=== PATIENT | male | born 1945 ===

== ENCOUNTER 2023-04-21 00:43 | Day surgery (SDC) | payer MEDICARE, OTHER, SELFPAY ==
[2023-04-20 14:41] VITALS: BMI 27.5
[2023-04-21] VITALS (10 sets, daily range): BP systolic 122–150; BP diastolic 77–89; PULSE 55–71; RESP 12–16; TEMP 36.2; O2SAT 95–98; BMI 27.0
[2023-04-21 07:47] LABS: Basophils Percent Auto 0.3 % (0.2-1.2); Eosinophils Absolute Auto 0.2 K/mm3 (0-0.3); Eosinophils Percent Auto 2.8 % (0-4.4); Hematocrit 46.5 % (42.0-52.0); Hemoglobin 15.6 g/dL (14.0-18.0); Immature Granulocyte Absolute 0.02 K/mm3 (0.00-0.031); Immature Granulocyte Percent A 0.3 % (0-0.5); Lymphocytes Absolute Auto 1.44 K/mm3 (0.9-3.2); Lymphocytes Percent Auto 23.6 % (18.3-44.2); Mean Corpuscular HGB Conc 33.5 g/dl (32-36); Mean Corpuscular Hemoglobin 32.5 pg (26-34); Mean Corpuscular Volume 96.9 fl (80-100); Monocytes Absolute Auto 0.6 K/mm3 (0.1-0.6); Monocytes Percent Auto 10.3 % (2.6-8.5); Neutrophils Absolute Auto 3.8 K/mm3 (1.3-6.7); Neutrophils Percent Auto 62.7 % (45.5-73.1); Platelet Count Result 151 k/mm3 (150-375); Red Cell Distribution Width 13.1 % (11.5-14.5); White Blood Count 6.1 K/mm3 (4.5-10.0)
[2023-04-21 07:57] LABS: INR 1.1; Prothrombin Time 14.8 Seconds (11.1-14.7)
[2023-04-21 08:02] LABS: Anion Gap 3 mmol/L (8-16); Blood Urea Nitrogen 19 mg/dL (9-20); Calcium 9.1 mg/dL (8.4-10.2); Carbon Dioxide 32 mmol/L (22-30); Chloride 106 mmol/L (98-107); Estimated CRCL calculation 67 ml/min; Estimated Glomerular Filt Rate > 60; Glucose 100 mg/dL (65-110); Potassium 3.7 mmol/L (3.4-5.0); Sodium 141 mmol/L (137-145)
--- NOTE | 2023-04-21 08:30 | ECG_ITS ---
Measurements Intervals [place] Rate: 51 P: 3 MA: 144 QRS: -77 QRSD: 184 T: -34 QT: 483 QTc: 445 Interpretive Statements SINUS RHYTHM RIGHT BUNDLE BRANCH BLOCK [120+ ms QRS DURATION, UPRIGHT V1, 40+ ms S IN I/aVL/V4/V5/V6] LEFT ANTERIOR FASCICULAR BLOCK [QRS AXIS <= -45, QR IN I, RS IN II] MODERATE T-WAVE ABNORMALITY NO PREVIOUS ECG AVAILABLE FOR COMPARISON Electronically Signed On 04-21-2023 15:48:28 RESEARCH CHIEF ENGINEER by Kathie Fu M.D.
--- NOTE | 2023-04-21 08:54 | PM.IMHP ---
H&P: HPI History of Present Illness Date/Time: 04/21/23 08:54 Chief Complaint: Pacemaker pulse generator at elective replacement interval Narrative: Riccardo Oropeza is 77-year-old male with history of Medtronic pacemaker implanted for intermittent complete heart block in 2012. He also has paroxysmal atrial fibrillation and has been anticoagulation. recently he was found have a decline in left ventricular function, EF 37-40% with inferior wall hypokinesis, and a stress test showed a large inferior fixed defect. He does not RV pace much. No known coronary disease or anginal symptoms. Medical therapy has been increased any scheduled for coronary CTA to evaluate for CAD. He is feeling well today with no fevers or signs of infection. He has held his Xarelto. He took his usual 2 mi walk this morning with no problems. Review of Systems Constitutional: Constitutional: Denies fever(s) Eyes: Eyes: Reports no additional eye complaints ENT: Denies epistaxis Cardiovascular: Cardiovascular: Denies chest pain, Denies pedal edema, Denies lightheadedness and Denies dyspnea Respiratory: Respiratory: Denies chest congestion and Denies dyspnea Gastrointestinal: Gastrointestinal: Denies abdominal pain and Denies hematochezia Genitourinary: Genitourinary: Reports no additional male genitourinary complaints Musculoskeletal: Musculoskeletal: Reports no additional musculoskeletal complaints Integumentary/Breasts: Skin/Breast: Reports system reviewed and no additional complaints, except as docu Neurologic: Reports system reviewed and no additional complaints, except as documented and Denies behavioral changes Psychiatric: Psychiatric: Denies behavioral changes [facility] Past Medical History Medical History (Updated 04/21/23 @ 09:02 by Nabila Magallanes MD) Cardiomyopathy Hypertension Pacemaker Medtronic pacemaker placed in 2012 for intermittent complete heart block. Katerina change 03/2023. Paroxysmal atrial fibrillation 2018 Primary hyperaldosteronism Sleep apnea TIA (transient ischemic attack) 2005 Family History Family History (Updated 04/21/23 @ 09:00 by Nabila Magallanes MD) Father Cancer Organic brain syndrome Mother Cirrhosis Social History Social History (Updated 04/21/23 @ 09:01 by Nabila Magallanes MD) Social History: , retired from , active with volunteer work. Smoking status: Never smoker Second hand tobacco smoke exposure: Yes Alcohol intake: current Drinks per week: 2 Alcohol use details: beer Substance use: never Living arrangements: with family Spiritual care concerns: No Meds Home Medications and Allergies Home Medications Medication Instructions Recorded Confirmed Type amlodipine 5 mg tablet 5 mg PO DAILY 04/20/23 04/21/23 History ascorbic acid (vitamin C) 1,000 mg 1,000 mg PO BID 04/20/23 04/21/23 History tablet atorvastatin 40 mg tablet 40 mg PO HS 04/20/23 04/20/23 History ciclopirox 8 % topical solution 1 applic topical HS PRN fungus 04/20/23 04/20/23 History cinnamon bark-chromium picolinate 2 cap PO BID 04/20/23 04/20/23 History 500 mg-100 mcg capsule clindamycin phosphate 1 % lotion See Rx Instructions .Route .COMPLEX 04/20/23 04/20/23 History cranberry 500 mg capsule 500 mg PO DAILY 04/20/23 04/21/23 History eplerenone 50 mg tablet 50 mg PO DAILY 04/20/23 04/21/23 History ezetimibe 10 mg tablet 10 mg PO DAILY 04/20/23 04/21/23 History glucosam-vit D-onwtbb-humi-Zn 500 1 tablet PO DAILY 04/20/23 04/21/23 History mg tablet loratadine 10 mg tablet 10 mg PO DAILY 04/20/23 04/21/23 History lutein 25 mg-zeaxanthin 5 mg 1 cap PO DAILY 04/20/23 04/21/23 History capsule metoprolol succinate 50 mg 100 mg PO DAILY 04/20/23 04/21/23 History tablet,extended release 24 hr montelukast 10 mg tablet 10 mg PO HS 04/20/23 04/20/23 History olopatadine 0.2 % eye drops 1 drp EACH EYE DAILY PRN Dry Eyes 04/20/23 04/20/23 History
--- NOTE | 2023-04-21 09:03 | WPDMODSED ---
Moderate Sedation Note-Pt Data Patient Data Diagnosis: Pacemaker pulse generator at elective replacement interval. Present Complaint: Riccardo Oropeza is 77-year-old male with history of Medtronic pacemaker implanted for intermittent complete heart block in 2012. His pacemaker has reached elective replacement interval. He is here for generator change. he also has paroxysmal atrial fibrillation and has been anticoagulation. recently he was found have a decline in left ventricular function, EF 37-40% with inferior wall hypokinesis, and a stress test showed a large inferior fixed defect. He does not RV pace much. No known coronary disease or anginal symptoms. Medical therapy has been increased any scheduled for coronary CTA to evaluate for CAD. He is feeling well today with no fevers or signs of infection. He has held his Xarelto. He took his usual 2 mi walk this morning with no problems. Procedure to be performed/Plan: Conscious sedation Generator change Allergies Allergy/AdvReac Type Severity Reaction Status Date / Time No Known Allergies Allergy Verified 04/21/23 07:27 Home Medications Medication Instructions Recorded Confirmed Type amlodipine 5 mg tablet 5 mg PO DAILY 04/20/23 04/21/23 History ascorbic acid (vitamin C) 1,000 mg 1,000 mg PO BID 04/20/23 04/21/23 History tablet atorvastatin 40 mg tablet 40 mg PO HS 04/20/23 04/20/23 History ciclopirox 8 % topical solution 1 applic topical HS PRN fungus 04/20/23 04/20/23 History cinnamon bark-chromium picolinate 2 cap PO BID 04/20/23 04/20/23 History 500 mg-100 mcg capsule clindamycin phosphate 1 % lotion See Rx Instructions .Route .COMPLEX 04/20/23 04/20/23 History cranberry 500 mg capsule 500 mg PO DAILY 04/20/23 04/21/23 History eplerenone 50 mg tablet 50 mg PO DAILY 04/20/23 04/21/23 History ezetimibe 10 mg tablet 10 mg PO DAILY 04/20/23 04/21/23 History glucosam-vit O-huysta-mrwc-Zn 500 1 tablet PO DAILY 04/20/23 04/21/23 History mg tablet loratadine 10 mg tablet 10 mg PO DAILY 04/20/23 04/21/23 History lutein 25 mg-zeaxanthin 5 mg 1 cap PO DAILY 04/20/23 04/21/23 History capsule metoprolol succinate 50 mg 100 mg PO DAILY 04/20/23 04/21/23 History tablet,extended release 24 hr montelukast 10 mg tablet 10 mg PO HS 04/20/23 04/20/23 History olopatadine 0.2 % eye drops 1 drp EACH EYE DAILY PRN Dry Eyes 04/20/23 04/20/23 History (Pataday Once Daily Relief) omega 9-ywd-fnx-fish oil 300 1 cap PO BID 04/20/23 04/21/23 History mg-1,000 mg capsule peg 400-propylene glycol (PF) 0.4 1 drp EACH EYE DAILY PRN Dry Eyes 04/20/23 04/20/23 History %-0.3 % eye drops in a dropperette (Systane (PF)) potassium chloride 20 mEq 20 meq PO BID 04/20/23 04/21/23 History tablet,extended release(part/cryst) rivaroxaban 20 mg tablet (Xarelto) 20 mg PO DAILY 04/20/23 04/20/23 History telmisartan 80 mg tablet 80 mg PO HS 04/20/23 04/20/23 History turmeric 400 mg capsule 700 mg PO BID 04/20/23 04/21/23 History zinc gluconate 50 mg tablet 50 mg PO HS 04/20/23 04/20/23 History Current Medications: Active Medications Sodium Chloride (Normal Saline Iv) 1,000 mls @ 100 mls/hr IV CONT .Q10H MARIYA Sedation/Anesthesia: No previous sedation/anesthesia problems (including family history). [facility] Past Medical History Medical History (Updated 04/21/23 @ 09:02 by Nabila Magallanes MD) Cardiomyopathy Hypertension Pacemaker Medtronic pacemaker placed in 2012 for intermittent complete heart block. Katerina change 03/2023. Paroxysmal atrial fibrillation 2018 Primary hyperaldosteronism Sleep apnea TIA (transient ischemic attack) 2005 Family History Family History (Updated 04/21/23 @ 09:00 by Nabila Magallanes MD) Father Cancer Organic brain syndrome Mother Cirrhosis Social History Social History (Updated 04/21/23 @ 09:01 by Nabila Magallanes MD) Social History: , retired from , active with volunteer work.
--- NOTE | 2023-04-21 10:13 | PM.OP ---
Procedure Note - Brief Procedure Note - Brief Date of procedure: 04/21/23 MELVA Post-op diagnosis: Other (s/p pacemaker generator change) Surgeon: Nabila Magallanes MD Description of procedure: Uneventful generator change Complications: No immediate complications Condition: Stable Disposition: Observation
--- NOTE | 2023-04-21 10:17 | W.PM.PROC2 ---
Procedure Note - Detailed Date of Procedure 04/21/23 Pre-op Diagnosis MELVA Post-op Diagnosis Other (S/p pacemaker generator change) Procedure Performed Conscious sedation Pacemaker Generator change Surgeon Nabila Magallanes MD Anesthesia Local (with conscious sedation) Indications Riccardo Oropeza is 77-year-old male with history of Medtronic pacemaker implanted for intermittent complete heart block in 2012.? device has reached elective replacement interval and he is here for a pulse generator change. He also has paroxysmal atrial fibrillation and has been anticoagulation.? Recently he was found have a decline in left ventricular function, EF 37-40% with inferior wall hypokinesis, and a stress test showed a large inferior fixed defect.? He does not RV pace much in general, although more recently he has been pacing more.? No known coronary disease or anginal symptoms.? Medical therapy has been increased any scheduled for coronary CTA to evaluate for CAD. He is feeling well today with no fevers or signs of infection.? He has held his Xarelto.? He took his usual 2 mi walk this morning with no problems. Findings NSR Description of Procedure PROCEDURE: Conscious sedation Generator change UNDERLYING RHYTHM: NSR CONSCIOUS SEDATION: Assessment: The patient has no history of anesthesia problems. The oropharynx is clear. The patient was deemed to be a good candidate for conscious sedation. The patient had continuous hemodynamic and oximetric monitoring during the procedure. Start time: 9:26 a.m. Completion time: 10:09 a.m. Total conscious sedation time: 43 minutes Medications: Versed 2 mg, fentanyl 50 mcg IV push Trained observer: Esperanza Casanova RN Outcome: The patient tolerated the procedure well with no complications. PROCEDURE: After informed consent, the patient is brought to the clinical laboratory director and the left prepectoral area was prepped and draped in usual fashion. The patient was given a prophylactic antibiotic intravenously with Ancef 2 g IV push. After conscious sedation as described above, the area was anesthetized with 1% lidocaine. A skin incision is made with the Plasma Blade and carried down to the pacing capsule which was also incised. Hemostasis is obtained using the Plasma Blade. The lead/s was/were freed from the underlying capsule and inspected and were found to be intact. The pulse generator was delivered from the pocket. The lead/s was/were disconnected from the existing device and reconnected to the new device. A gentle tug could not remove it/them. The device and lead/s was/were interrogated and found to be functioning appropriately. The area was copiously irrigated with antibiotic-containing solution. The device was placed in TyRx pouch and replaced in the pocket. The subcutaneous tissues were closed in a two-layer fashion with interrupted 2 0 Vicryl sutures and the skin was closed in a continuous fashion using 4 0 Vicryl. The area was cleansed, an Aquacel dressing applied. The patient tolerated the procedure well with no complications. Estimated blood loss was negligible. THRESHOLD INFORMATION: right atrial lead: P-wave sensing 2.9 mV, impedance 532 Ohms, threshold 0.75 volts at 0.4 milliseconds right ventricular lead: R-wave sensing 5.4 mV, impedance 551 Ohms, threshold 0.75 at 0.4 millisecond PROGRAMMED PARAMETERS: AAIR <=> DDDR 50-130 (Note: The lower rate limit was reduced from 60-50 ppm to reduce RV pacing.) Implants DEVICE INFORMATION: New pulse generator: Generaytor model [id number], serial [id number] [id number] Existing right atrial lead: Medtronic model 5086 MRI 52, serial LFP [id number], implanted 03/07/2012 existing right ventricular lead: Medtronic model 5086 MRI 58, serial LFP [id number] Estimated Blood Loss 5 (cc) Complications No immediate complications Condition Stable Disposition Observation
== END 2023-04-21 13:30 | disposition home or self-care (01) ==
PROVIDERS: PCP Internal Medicine; Visit Provider Internal Medicine Cardiovascular Disease
PROC: 0JPT0PZ Removal of Cardiac Rhythm Related Device from Trunk Subcutaneous Tissue and Fascia, Open Approach (ICD-10-PCS; CPT 33228; principal; 2023-04-21 08:30)
DX: Z45.010 Encounter for checking and testing of cardiac pacemaker pulse generator [battery] (principal); I42.9 Cardiomyopathy, unspecified; I10 Essential (primary) hypertension; E26.09 Other primary hyperaldosteronism; G47.30 Sleep apnea, unspecified; Z79.01 Long term (current) use of anticoagulants; Z86.79 Personal history of other diseases of the circulatory system; Z86.73 Personal history of transient ischemic attack (TIA), and cerebral infarction without residual deficits; Z80.9 Family history of malignant neoplasm, unspecified
CPT/HCPCS: 33228; 36415; 80048; 85025; 85610; 93005; C1785; J0690; J2250; J3010; J7030; J7040